=== PATIENT | female | born 1990 | race African-American/Black ===

== ENCOUNTER 2019-07-18 03:52 | Inpatient (IN) | payer OTHER ==
[~2019-07-18] VITALS: Ht 162.6 cm; Wt 95.3 kg
--- NOTE | 2019-07-18 04:19 | PHYS DOC ---
General Adult EDM: Chief Complaint: VAGINAL BLEEDING HPI: HPI: Patient is a 28 year old female who presents via EMS with report of vaginal bleeding and . Patient estimates her self to be somewhat in the neighborhood of 6 months . Patient has not had any care. EMS reports that patient had lost approximately 400-500 mL of blood. Patient states that she has not had any abdominal cramping to alert her to any trouble. She states that she is A1.[] Review of Systems: Review of Systems: Constitutional: Denies fever or chills. [] Respiratory: Denies cough or shortness of breath. [] Cardiovascular: Denies chest pain or edema. [] GI: Denies abdominal pain, nausea, vomiting, bloody stools or diarrhea. [] : Complains of vaginal bleeding. [] Musculoskeletal: Denies back pain or joint pain. [] Neurologic: Denies headache, focal weakness or sensory changes. [] A full 10 point review of systems has been reviewed and is otherwise negative. Heart Score: Risk Factors: Risk Factors: DM, Current or recent (<one month) smoker, HTN, HLP, family history of CAD, obesity. Risk Scores: Score 0 - 3: 2.5% MACE over next 6 weeks - Discharge Home Score 4 - 6: 20.3% MACE over next 6 weeks - Admit for Clinical Observation Score 7 - 10: 72.7% MACE over next 6 weeks - Early Invasive Strategies Physical Exam: PE: Constitutional: Well developed, well nourished, no acute distress, non-toxic appearance. [] HENT: Normocephalic, atraumatic, bilateral external ears normal, oropharynx moist, no oral exudates, nose normal. [] Eyes: PERRLA, EOMI, conjunctiva normal, no discharge. [] Neck: Normal range of motion, no tenderness, supple, no stridor. [] Cardiovascular: Mildly tachycardic rate with regular rhythm[] Lungs & Thorax: Bilateral breath sounds clear to auscultation [] Abdomen: Bowel sounds normal, with gravid uterus well above the umbilicus. [] Skin: Warm, dry, no erythema, no rash. [] Extremities: No tenderness, no cyanosis, no clubbing, ROM intact. [] Neurologic: Alert and oriented X 3, no focal deficits noted. [] EKG: EKG: [] Radiology/Procedures: Radiology/Procedures: [] Course & Med Decision Making: Course & Med Decision Making Pertinent Labs and Imaging studies reviewed. (See chart for details) Patient moved to room upon arrival was evaluated by your medical staff and OB nursing came to emergency room upon patient arrival. Ultrasound was immediately contacted and presented to room within a few minutes and ultrasound completed demonstrating estimated age of 31 weeks 3 days. Good heart tones were noted on exam. At this point, Dr. Posada, on-call for OB, was contacted and will come in immediately. Patient at this time transported up to labor and delivery. Dragon Disclaimer: [employer] Disclaimer: This electronic medical record was generated, in whole or in part, using a voice recognition dictation system. Departure Departure Impression: Primary Impression: Vaginal bleeding in patient after first trimester Disposition: 09 ADMITTED INPATIENT Condition: EDGARDO ROSAS Jr. DO Jul 18, 2019 04:19
[2019-07-18] MEDS ORDERED: IBUPROFEN 400 MG TABLET. PO PRN (04:30)
[2019-07-18] MEDS ORDERED: ACETAMINOPHEN 500 MG TABLET PO PRN (04:30)
[2019-07-18] MEDS ORDERED: OXYTOCIN 30 UNIT/500 ML PREMIX 500 ML IV PRN ×3 (04:30→06:15)
[2019-07-18] MEDS ORDERED: BUTORPHANOL 2 MG/ML VIAL. IVP PRN (04:30)
[2019-07-18] MEDS ORDERED: LIDOCAINE 1% PF 30 ML VIAL. INJ PRN (04:30)
[2019-07-18] MEDS ORDERED: TERBUTALINE 1 MG/ML VIAL. SQ PRN (04:30)
[2019-07-18] MEDS ORDERED: fentaNYL PF VIAL 100 MCG/2 ML VIAL IVP PRN (04:30)
[2019-07-18] MEDS ORDERED: 0.9 % SODIUM CHLORIDE 10 ML DISP.SYRIN. IV PRN ×2 (04:30→06:15)
[2019-07-18] MEDS ORDERED: CITRIC ACID/SODIUM CITRATE 30 ML SOLUTION. PO PRN (04:30)
[2019-07-18] MEDS ORDERED: ONDANSETRON PF 4 MG/2 ML VIAL. IVP PRN (04:30)
--- NOTE | 2019-07-18 04:36 | RAD ---
Study: US OB LIMITED Indication: Heavy vaginal bleeding. Known third trimester . Comparison: None. Technique: Limited obstetrical sonogram to include heart rate measurement, biometric data and assessment of the placenta for abruption. Findings: Biparietal diameter: 8.02 cm. 32 weeks 1 day Head circumference: 28.45 cm. 31 weeks 2 days Abdominal circumference: 27.03 cm. 31 weeks 1 day Femur length: 5.9 cm. 31 weeks 0 days heart rate measured at 169 bpm. Estimated gestational age by ultrasound of 31 weeks 3 days. Estimated weight of 1713 g +/- 254 g. Amniotic fluid index was not measured. A thin area of hypoechogenicity interposed between the placenta and uterus such as on image 9. This is not fully characterize. Impression: 1. Limited obstetrical sonogram in the setting of a third trimester . The study was not completed as the patient was in distress and transferred emergently to the obstetrical unit. 2. Single live intrauterine with an estimated gestational age by ultrasound of 31 weeks 3 days. A thin region of hypoechogenicity was seen interposed between the placenta and uterus on a few images but was not fully interrogated to exclude partial placental abruption. Electronically signed by: EKTA ORELLANA MD (07/18/2019 4:33 AM) [id number]
[2019-07-18 04:44] LABS: BILIRUBIN,URINE NEGATIVE (NEG); CLARITY,URINE CLEAR; COLOR,URINE YELLOW; NITRITE,URINE NEGATIVE (NEG); PH,URINE 6.5 (<5.0-8.0); PROTEIN,URINE 100 mg/dL (NEG-TRACE)
[2019-07-18] MEDS ORDERED: fentaNYL PF VIAL 100 MCG/2 ML VIAL ONE (04:48)
[2019-07-18] MEDS ORDERED: PROPOFOL 20 ML IV ONE (04:48)
[2019-07-18] MEDS ORDERED: SUCCINYLCHOLINE 200 MG/10 ML VIAL. ONE (04:48)
[2019-07-18 04:51] LABS: AMPHETAMINE/METHAMPHETAMINE POS (NEG); BARBITURATES NEG (NEG); BENZODIAZEPINES NEG (NEG); CANNABINOIDS NEG (NEG); COCAINE NEG (NEG); METHADONE NEG (NEG); OPIATES NEG (NEG); PHENCYCLIDINE NEG (NEG)
[2019-07-18 04:52] LABS: BASO % 1 % (0-3); EOS # 0.2 x10^3/uL (0.0-0.7); EOS % 2 % (0-3); HEMATOCRIT 28.6 % (36.0-47.0); HEMOGLOBIN 9.4 g/dL (12.0-15.5); LYMPH # 1.7 x10^3/uL (1.0-4.8); LYMPH % 18 % (24-48); MEAN CORPUSCULAR HEMOGLOBIN 27 pg (25-35); MEAN CORPUSCULAR HGB CONC 33 g/dL (31-37); MEAN CORPUSCULAR VOLUME 81 fL (79-100); MONO # 0.6 x10^3/uL (0.0-1.1); MONO % 7 % (0-9); NEUT # 6.5 x10^3/uL (1.8-7.7); NEUT % 72 % (31-73); PLATELET COUNT 267 x10^3/uL (140-400); RED BLOOD COUNT 3.54 x10^6/uL (3.50-5.40); RED CELL DISTRIBUTION WIDTH 16.5 % (11.5-14.5)
[2019-07-18 04:55] LABS: AMORPHOUS SEDIMENT,UR PRESENT /HPF; BACTERIA,URINE FEW /HPF (0-FEW); SQUAMOUS EPITHELIAL CELL,UR FEW /LPF; TRICHOMONAS,URINE PRESENT
--- NOTE | 2019-07-18 04:55 | PDOC1 ---
OB - History Hx of Present Care: None Ultrasounds: No ultrasounds Obstetrical Complications: None Medical Complications: None Past Family/Social History * Past Medical, Surgical, Family and Obstetric Histories reviewed from chart. Blood Type: Unknown Rubella: Unknown RPR/VDRL: Unknown GBS Status: Unknown HBsAG: Unknown OB - Chief Complaint & HPI Date of Admission: Date of Admission: Jul 18, 2019 at 04:19 Chief Complaint/History : 6 Para: 5 EGA: 31 Reason for admission: vaginal bleeding, other (placental abruption) Admission Nurse Assessment Rev: Yes OB - Admission Exam Physical Exam Vitals: VS - Last 72 Hours, by Label Date Time Temp Pulse Resp B/P (MAP) Pulse Ox O2 Delivery O2 Flow Rate FiO2 07/18/19 03:52 108 24 118/63 (81) 98 Room Air HEENT: Normal Heart: Other (tachycardia) Abdomen: Gravid, Tender (firm; tenderness lower abdomen; Pelvic: active bleeding with 50 ml blood clot seen with speculum exam. Digital exam deferred.) Extremities: No tenderness or swelling Membranes: Intact Heart Rate: Normal Accelerations: Accelerations Present Decelerations: No decelerations Contractions on Admission: < 5 Minutes Apart Intensity: Firm Text A: 31 wks IUP Previous c/s x 1 Placental abruption P: Admit for repeat c/s. Give magnesium sulfate bolus and celestone for corticosteroids. [facility]ICU Transport from [facility] notified. BRAULIO JONES Jr, MD Jul 18, 2019 04:55
[2019-07-18] MEDS ORDERED: MAGNESIUM SULFATE 4GM 100 ML IV ONE (05:00)
[2019-07-18] MEDS ORDERED: MAGNESIUM SULFATE 4 GM/100 ML IV ONE (05:00)
[2019-07-18] MEDS ORDERED: BETAMET ACET&NA PHOS 30 MG/5 ML VIAL. IM SCH (05:00)
[2019-07-18 05:03] LABS: PROTHROMBIN TIME PATIENT 12.8 SEC (11.7-14.0)
[2019-07-18 05:04] LABS: CALCIUM 7.8 mg/dL (8.5-10.1); CREATININE 0.6 mg/dL (0.6-1.0); POTASSIUM 3.5 mmol/L (3.5-5.1)
[2019-07-18 05:10] LABS: ALBUMIN/GLOBULIN RATIO 0.5 (1.0-1.7); MAGNESIUM 1.7 mg/dL (1.8-2.4); TOTAL BILIRUBIN 0.3 mg/dL (0.2-1.0); TOTAL PROTEIN 6.2 g/dL (6.4-8.2)
[2019-07-18] MEDS ORDERED: SEVOFLURANE 61 TO 120 MINUTES. IH ONE (05:15)
[2019-07-18] MEDS ORDERED: OXYTOCIN 10 UNIT/ML VIAL. ONE (05:15)
[2019-07-18] MEDS ORDERED: ONDANSETRON PF 4 MG/2 ML VIAL. ONE (05:23)
[2019-07-18] MEDS ORDERED: ceFAZolin 2GM PREMIX 2 GM/50 ML BAG IV ONE (06:00)
[2019-07-18] MEDS ORDERED: MAGNESIUM SULFATE 20GM 500 ML IV SCH (06:00)
--- NOTE | 2019-07-18 06:03 | PDOC4 ---
OB Operative Note Date: Jul 18, 2019 PRE OP DIAGNOSIS: Previoujs C- section (Placental abruption with active bleeding) POST OP DIAGNOSIS: Other (Same) OPERATION PERFORMED: R [facility] Surgeon Dr. Posada Anesthesia: Gen Blood Loss 500 ml Specimen placenta and infant OB Findings: Position (Vertex), Sex (Male), (28), Weight (1500 Gram), Other (placental abruption 50%) Complications placental abruption Additional Remarks Pt. BRAULIO Juan Jr, MD Jul 18, 2019 06:03
[2019-07-18] MEDS ORDERED: SIMETHICONE 80 MG TAB.CHEW PO PRN (06:15)
[2019-07-18] MEDS ORDERED: KETOROLAC 30 MG/ML VIAL. IV PRN (06:15)
[2019-07-18] MEDS ORDERED: diphenhydrAMINE ORAL ELIXIR 12.5 MG/5 ML ML PO PRN (06:15)
[2019-07-18] MEDS ORDERED: MAG HYDROX/ALUMINUM HYD/SIMETH 30 ML ORAL.SUSP PO PRN (06:15)
[2019-07-18] MEDS ORDERED: ONDANSETRON PF 4 MG/2 ML VIAL. IV PRN ×2 (06:15→07:30)
[2019-07-18] MEDS ORDERED: oxyCODONE/APAP 5/325 1 TAB TABLET PO PRN (06:15)
[2019-07-18] MEDS ORDERED: ZOLPIDEM 5 MG TABLET. PO PRN (06:15)
[2019-07-18] MEDS ORDERED: IV NORMAL SALINE 1000ML BAG 1,000 ML IV SCH (07:23)
[2019-07-18] MEDS ORDERED: IV RINGERS,LACTATED 1000ML 1,000 ML IV SCH (07:28)
[2019-07-18] MEDS ORDERED: PROCHLORPERAZINE 10 MG/2 ML VIAL. IV PRN (07:30)
[2019-07-18] MEDS ORDERED: HYDROmorphone 2 MG/ML VIAL IV PRN (07:30)
[2019-07-18] MEDS ORDERED: MORPHINE SULFATE 2 MG/ML VIAL. IV PRN (07:30)
[2019-07-18] MEDS ORDERED: NALOXONE 0.4 MG/ML VIAL. IV PRN (07:30)
[2019-07-18] MEDS ORDERED: fentaNYL PF VIAL 100 MCG/2 ML VIAL IV PRN ×2 (07:30)
[2019-07-18] MEDS ORDERED: LIDOCAINE 1% PF 2 ML VIAL. ID PRN (07:30)
[2019-07-18] MEDS ORDERED: fentaNYL STANDARD PCA 600 MCG/30 ML PCA.SYRING IV ONE (07:50)
[2019-07-18 08:14] LABS: HEMATOCRIT 27.6 % (36.0-47.0); RED BLOOD COUNT 3.39 x10^6/uL (3.50-5.40); RED CELL DISTRIBUTION WIDTH 16.6 % (11.5-14.5); WHITE BLOOD COUNT 10.3 x10^3/uL (4.0-11.0)
--- NOTE | 2019-07-18 09:05 | OP ---
DATE OF SURGERY: 07/18/2019 PREOPERATIVE DIAGNOSES: 1. A 31 weeks' intrauterine . 2. No care. 3. Placental abruption. 4. Previous section. POSTOPERATIVE DIAGNOSES: 1. A 31 weeks' intrauterine . 2. No care. 3. Placental abruption. 4. Previous section. PROCEDURE: Repeat low transverse section. SURGEON: Braulio Posada MD ANESTHESIA: GETA. ESTIMATED BLOOD LOSS: 500 mL. To note, there was about 500 mL of blood clot in the ambulance upon arrival per creative specialist. There was also an additional 50 mL of blood clot upon sterile speculum exam. FINDINGS: Viable male infant; Apgars 2, 5, 9; weight 1500 g. Three-vessel cord placenta delivered manually. SUMMARY: A 28-year-old 6, para 5 at about 31 weeks, presented via ambulance to the Emergency Room with vaginal bleeding of about 500 mL per creative specialist. The patient also reports having large blood loss at home in the bed as well as in the toilet. She denies any care up to this point. Ultrasound indicated a 31-week gestation. The patient clinically presented as placental abruption with firm, tender abdomen. Upon further evaluation with speculum exam, there was about another 50 mL of blood clot that was seen. She was counseled on risks, benefits and expectations of emergent section due to placental abruption. The patient was positive for methamphetamines and denied any other illicit drug use. DESCRIPTION OF PROCEDURE: The patient was taken to surgery suite and placed in dorsal supine position. She was prepped with ChloraPrep and draped in sterile fashion. After adequate anesthesia, Pfannenstiel skin incision was made with a scalpel down to and through the fascia. Fascia was extended laterally using curved Lal scissors. The superior edge of fascia was grasped with 2 Zen clamps, dissected free of the abdominal rectus muscles using blunt dissection along with Bovie cautery. The same process took place inferiorly. The peritoneum and abdominal rectus muscles were dissected using curved Lal scissors. The Jeancarlos ring retractor was placed. Low transverse hysterotomy incision was made with a scalpel down to the amniotic sac. Hysterotomy incision was extended laterally and superiorly digitally. Amniotomy was performed with Allis clamp, which elicited clear fluid. With fundal pressure, the infant's head was delivered in a smooth atraumatic manner. With additional fundal pressure, the rest of the male infant was delivered. The was suctioned with bulb syringe orally and nasally, umbilical cord was clamped twice and cut. Viable male was handed to waiting nursing staff. Umbilical cord blood was then obtained as well as arterial pH. Three-vessel cord placenta was delivered manually. The uterus was exteriorized, cleared of clot and debris with a moist lap. Hysterotomy incision was reapproximated using #1 Vicryl suture in running locked fashion and imbricated layer of #1 Vicryl suture was utilized for better hemostasis. Uterus palpated firm. Fallopian tubes and ovaries appeared normal bilaterally. Posterior cul-de-sac was cleared of clot and debris with moist lap. The uterus was then returned to the abdomen. Pericolic gutters were cleared of clot and debris with moist lap. Hysterotomy incision was reviewed and was hemostatic. The Jeancarlos ring retractor was removed. Peritoneum was reapproximated using #1 Vicryl suture in running fashion. Fascia was reapproximated using Stratafix in running fashion. Skin was reapproximated using 4-0 Vicryl suture in subcuticular manner. The patient tolerated the procedure well and was taken to recovery room in stable condition. Sponge and needle count correct x 3. BRAULIO POSADA MD DR: CRISSY/ambar JOB#: [id number] / [id number]
[2019-07-18 10:00] VITALS: BP 103/70
[2019-07-18 10:30] VITALS: BP 111/74
[2019-07-18 11:00] VITALS: BP 112/69
[2019-07-18] MEDS: IV RINGERS,LACTATED 1000ML 1,000 ML IV SCH ×2 (11:00→18:08)
[2019-07-18 12:30] VITALS: BP 113/69
[2019-07-18 12:41] LABS: HEMATOCRIT 25.8 % (36.0-47.0); HEMOGLOBIN 8.4 g/dL (12.0-15.5); RED BLOOD COUNT 3.22 x10^6/uL (3.50-5.40); RED CELL DISTRIBUTION WIDTH 16.8 % (11.5-14.5); WHITE BLOOD COUNT 11.6 x10^3/uL (4.0-11.0)
--- NOTE | 2019-07-18 12:45 | NUR ---
SS following up with referral regarding no care, maternal methamphetamine use, and other children. SS reviewed pt chart and discussed with infant and mother RN. transferred to [facility] due to medical concerns. Mother positive for methamphetamines. SS met with mother and maternal grandmother in room to discuss circumstances surrounding the referral. Mother somewhat confused but understanding that SS needed to complete hotline for Methamphetamine use. Mother denied substance use and reported that she took some medications and her sons inhaler. Mother reported she has five other children in the home. DCF hotline report completed for Methamphetamine use, no care, and concern for infant and other children in the home. Intake#[id number].
[2019-07-18 15:46] VITALS: BP 94/62
[2019-07-18] MEDS: FERROUS SULFATE 325 MG TABLET. PO SCH ×2 (17:00→18:08)
[2019-07-18] MEDS: DOCUSATE SODIUM 100 MG CAPSULE. PO PRN (18:08)
[2019-07-18 21:02] VITALS: BP 99/61
[2019-07-19] MEDS: IV RINGERS,LACTATED 1000ML 1,000 ML IV SCH (01:30)
[2019-07-19 01:45] VITALS: BP 93/52
[2019-07-19 03:53] LABS: BASO % 0 % (0-3); EOS % 0 % (0-3); HEMATOCRIT 24.2 % (36.0-47.0); HEMOGLOBIN 7.9 g/dL (12.0-15.5); LYMPH # 1.2 x10^3/uL (1.0-4.8); LYMPH % 9 % (24-48); MEAN CORPUSCULAR HEMOGLOBIN 26 pg (25-35); MEAN CORPUSCULAR HGB CONC 33 g/dL (31-37); MEAN CORPUSCULAR VOLUME 80 fL (79-100); MONO # 0.8 x10^3/uL (0.0-1.1); MONO % 6 % (0-9); NEUT # 10.7 x10^3/uL (1.8-7.7); NEUT % 84 % (31-73); PLATELET COUNT 248 x10^3/uL (140-400); RED BLOOD COUNT 3.02 x10^6/uL (3.50-5.40); RED CELL DISTRIBUTION WIDTH 17.2 % (11.5-14.5); WHITE BLOOD COUNT 12.8 x10^3/uL (4.0-11.0)
[2019-07-19] MEDS: IBUPROFEN 400 MG TABLET. PO PRN ×2 (06:14→16:34)
[2019-07-19 06:45] VITALS: BP 108/67
--- NOTE | 2019-07-19 07:13 | PDOC ---
OB Progress Note Date of Service 07/19/19 Time of Evaluation 0710 Problem List Problems Medical Problems: (1) Vaginal bleeding in patient after first trimester Status: Acute Notes PT. feeling well. Pain controlled. No complaints. Lab Laboratory Tests Test 07/18/19 04:37 07/18/19 04:39 07/18/19 08:00 07/18/19 11:45 Urine Collection Type Unknown Urine Color Yellow Urine Clarity Clear Urine pH 6.5 (<5.0-8.0) Urine Specific [place] 1.020 (1.000-1.030) Urine Protein 100 mg/dL (NEG-TRACE) Urine Glucose (UA) Negative mg/dL (NEG) Urine Ketones (Stick) Negative mg/dL (NEG) Urine Blood Moderate (NEG) Urine Nitrite Negative (NEG) Urine Bilirubin Negative (NEG) Urine Urobilinogen Dipstick 1.0 mg/dL (0.2 mg/dL) Urine Leukocyte Esterase Moderate (NEG) Urine RBC 11-20 /HPF (0-2) Urine WBC 11-20 /HPF (0-4) Urine Squamous Epithelial Cells Few /LPF Urine Amorphous Sediment Present /HPF Urine Bacteria Few /HPF (0-FEW) Urine Mucus Marked /LPF Urine Trichomonas Present Urine Opiates Screen Neg (NEG) Urine Methadone Screen Neg (NEG) Urine Barbiturates Neg (NEG) Urine Phencyclidine Screen Neg (NEG) Urine Amphetamine/Methamphetamine Pos (NEG) Urine Benzodiazepines Screen Neg (NEG) Urine Cocaine Screen Neg (NEG) Urine Cannabinoids Screen Neg (NEG) Urine Ethyl Alcohol Neg (NEG) White Blood Count 9.0 x10^3/uL (4.0-11.0) 10.3 x10^3/uL (4.0-11.0) 11.6 x10^3/uL (4.0-11.0) Red Blood Count 3.54 x10^6/uL (3.50-5.40) 3.39 x10^6/uL (3.50-5.40) 3.22 x10^6/uL (3.50-5.40) Hemoglobin 9.4 g/dL (12.0-15.5) 9.0 g/dL (12.0-15.5) 8.4 g/dL (12.0-15.5) Hematocrit 28.6 % (36.0-47.0) 27.6 % (36.0-47.0) 25.8 % (36.0-47.0) Mean Corpuscular Volume 81 fL (79-100) 81 fL (79-100) 80 fL (79-100) Mean Corpuscular Hemoglobin 27 pg (25-35) 27 pg (25-35) 26 pg (25-35) Mean Corpuscular Hemoglobin Concent 33 g/dL (31-37) 33 g/dL (31-37) 33 g/dL (31-37) Red Cell Distribution Width 16.5 % (11.5-14.5) 16.6 % (11.5-14.5) 16.8 % (11.5-14.5) Platelet Count 267 x10^3/uL (140-400) 220 x10^3/uL (140-400) 230 x10^3/uL (140-400) Neutrophils (%) (Auto) 72 % (31-73) Lymphocytes (%) (Auto) 18 % (24-48) Monocytes (%) (Auto) 7 % (0-9) Eosinophils (%) (Auto) 2 % (0-3) Basophils (%) (Auto) 1 % (0-3) Neutrophils # (Auto) 6.5 x10^3/uL (1.8-7.7) Lymphocytes # (Auto) 1.7 x10^3/uL (1.0-4.8) Monocytes # (Auto) 0.6 x10^3/uL (0.0-1.1) Eosinophils # (Auto) 0.2 x10^3/uL (0.0-0.7) Basophils # (Auto) 0.0 x10^3/uL (0.0-0.2) Prothrombin Time 12.8 SEC (11.7-14.0) Prothromb Time International Ratio 1.0 (0.8-1.1) Activated Partial Thromboplast Time 28 SEC (24-38) Sodium Level 140 mmol/L (136-145) Potassium Level 3.5 mmol/L (3.5-5.1) Chloride Level 108 mmol/L (98-107) Carbon Dioxide Level 20 mmol/L (21-32) Anion Gap 12 (6-14) Blood Urea Nitrogen 10 mg/dL (7-20) Creatinine 0.6 mg/dL (0.6-1.0) Estimated GFR (Cockcroft-Gault) 143.0 BUN/Creatinine Ratio 17 (6-20) Glucose Level 113 mg/dL (70-99) Calcium Level 7.8 mg/dL (8.5-10.1) Magnesium Level 1.7 mg/dL (1.8-2.4) Total Bilirubin 0.3 mg/dL (0.2-1.0) Aspartate Amino Transf (AST/SGOT) 15 U/L (15-37) Alanine Aminotransferase (ALT/SGPT) 19 U/L (14-59) Alkaline Phosphatase 74 U/L (46-116) Total Protein 6.2 g/dL (6.4-8.2) Albumin 2.0 g/dL (3.4-5.0) Albumin/Globulin Ratio 0.5 (1.0-1.7) Treponema pallidum Antibody Nonreactive (Nonreactive) HIV (1&2) Antibody Screen Nonreactive (Nonreactive) Rubella IgG Antibody 1.09 index (Immune >0.99) Hepatitis B Surface Antibody Reactive Test 07/19/19 03:40 White Blood Count 12.8 x10^3/uL (4.0-11.0) Red Blood Count 3.02 x10^6/uL (3.50-5.40) Hemoglobin 7.9 g/dL (12.0-15.5) Hematocrit 24.2 % (36.0-47.0) Mean Corpuscular Volume 80 fL (79-100) Mean Corpuscular Hemoglobin 26 pg (25-35) Mean Corpuscular Hemoglobin Concent 33 g/dL (31-37) Red Cell Distribution Width 17.2 % (11.5-14.5) Platelet Count 248 x10^3/uL (140-400) Neutrophils (%) (Auto) 84 % (31-73) Lymphocytes (%) (Auto) 9 % (24-48) Monocytes (%) (Auto) 6 % (0-9) Eosinophils (%) (Auto) 0 % (0-3) Basophils (%) (Auto) 0 % (0-3) Neutrophils # (Auto) 10.7 x10^3/uL (1.8-7.7) Lymphocytes # (Auto) 1.2 x10^3/uL (1.0-4.8) Monocytes # (Auto) 0.8 x10^3/uL (0.0-1.1) Eosinophils # (Auto) 0.0 x10^3/uL (0.0-0.7) Basophils # (Auto) 0.0 x10^3/uL (0.0-0.2) Laboratory Tests Test 07/18/19 08:00 07/18/19 11:45 07/19/19 03:40 White Blood Count 10.3 x10^3/uL (4.0-11.0) 11.6 x10^3/uL (4.0-11.0) 12.8 x10^3/uL (4.0-11.0) Red Blood Count 3.39 x10^6/uL (3.50-5.40) 3.22 x10^6/uL (3.50-5.40) 3.02 x10^6/uL (3.50-5.40) Hemoglobin 9.0 g/dL (12.0-15.5) 8.4 g/dL (12.0-15.5) 7.9 g/dL (12.0-15.5) Hematocrit 27.6 % (36.0-47.0) 25.8 % (36.0-47.0) 24.2 % (36.0-47.0) Mean Corpuscular Volume 81 fL (79-100) 80 fL (79-100) 80 fL (79-100) Mean Corpuscular Hemoglobin 27 pg (25-35) 26 pg (25-35) 26 pg (25-35) Mean Corpuscular Hemoglobin Concent 33 g/dL (31-37) 33 g/dL (31-37) 33 g/dL (31-37) Red Cell Distribution Width 16.6 % (11.5-14.5) 16.8 % (11.5-14.5) 17.2 % (11.5-14.5) Platelet Count 220 x10^3/uL (140-400) 230 x10^3/uL (140-400) 248 x10^3/uL (140-400) Hepatitis B Surface Antibody Reactive Neutrophils (%) (Auto) 84 % (31-73) Lymphocytes (%) (Auto) 9 % (24-48) Monocytes (%) (Auto) 6 % (0-9) Eosinophils (%) (Auto) 0 % (0-3) Basophils (%) (Auto) 0 % (0-3) Neutrophils # (Auto) 10.7 x10^3/uL (1.8-7.7) Lymphocytes # (Auto) 1.2 x10^3/uL (1.0-4.8) Monocytes # (Auto) 0.8 x10^3/uL (0.0-1.1) Eosinophils # (Auto) 0.0 x10^3/uL (0.0-0.7) Basophils # (Auto) 0.0 x10^3/uL (0.0-0.2) Medications Current Medications Sodium Chloride (Normal Saline Flush) 3 ml QSHIFT PRN IV AFTER MEDS AND BLOOD DRAWS; Start 07/18/19 at 04:30; Stop 07/18/19 at 06:20; Status DC Ringer's Solution 1,000 ml @ 125 mls/hr Q8H IV Last administered on 07/19/19at 01:30; Start 07/18/19 at 04:24 Butorphanol Tartrate (Stadol) 2 mg PRN Q1HR PRN IVP Severe labor pain; Start 07/18/19 at 04:30 Fentanyl Citrate (Fentanyl 2ml Vial) 100 mcg PRN Q30MIN PRN IVP Severe pain; Start 07/18/19 at 04:30 Acetaminophen (Tylenol) 1,000 mg PRN Q6HRS PRN PO MILD PAIN / TEMP > 100.3'F; Start 07/18/19 at 04:30 Ondansetron HCl (Zofran) 4 mg PRN Q4HRS PRN IVP NAUSEA/VOMITING 1ST CHOICE; Start 07/18/19 at 04:30 Citric Acid/ Sodium Citrate (Bicitra) 30 ml 1X PRN PRN PO DYSPEPSIA; Start 07/18/19 at 04:30; Stop 07/19/19 at 04:29; Status DC Terbutaline Sulfate (Brethine) 0.25 mg 1X PRN PRN SQ SEE COMMENTS; Start 07/18/19 at 04:30; Stop 07/19/19 at 04:29; Status DC Lidocaine HCl (Xylocaine 1% Pf 30ml Vial) 30 ml 1X PRN PRN INJ SEE COMMENTS; Start 07/18/19 at 04:30; Stop 07/20/19 at 04:29 Oxytocin/Sodium Chloride 500 ml @ 0 mls/hr CONT PRN IV SEE I/O RECORD; Start 07/18/19 at 04:30 Oxytocin/Sodium Chloride 500 ml @ 0 mls/hr CONT PRN PRN IV Post delivery bleeding; Start 07/18/19 at 04:30 Ibuprofen (Motrin) 800 mg PRN Q6HRS PRN PO MODERATE PAIN 4-6; Start 07/18/19 at 04:30; Stop 07/18/19 at 06:20; Status DC Betamethasone Sodium Phosphate (Celestone Soluspan) 12 mg Q24H IM ; Start 07/18/19 at 05:00; Stop 07/20/19 at 04:59 Magnesium Sulfate 100 ml @ 25 mls/hr 1X ONCE IV ; Start 07/18/19 at 05:00; Stop 07/18/19 at 13:29; Status DC Magnesium Sulfate 500 ml @ 50 mls/hr Q10H IV ; Start 07/18/19 at 06:00; Stop 07/18/19 at 13:29; Status DC Succinylcholine Chloride (Anectine) 200 mg STK-MED ONCE .ROUTE ; Start 07/18/19 at 04:48; Stop 07/18/19 at 04:48; Status DC Propofol 20 ml @ As Directed STK-MED ONCE IV ; Start 07/18/19 at 04:48; Stop 07/18/19 at 04:48; Status DC Fentanyl Citrate (Fentanyl 2ml Vial) 100 mcg STK-MED ONCE .ROUTE ; Start 07/18/19 at 04:48; Stop 07/18/19 at 04:49; Status DC Cefazolin Sodium/ Dextrose 50 ml @ 100 mls/hr 1X ONCE IV ; Start 07/18/19 at 05:00; Stop 07/18/19 at 05:29; Status DC Oxytocin (Pitocin) 10 unit STK-MED ONCE .ROUTE ; Start 07/18/19 at 05:15; Stop 07/18/19 at 05:16; Status DC Sevoflurane (Ultane) 60 ml STK-MED ONCE IH ; Start 07/18/19 at 05:15; Stop 07/18/19 at 05:16; Status DC Ondansetron HCl (Zofran) 4 mg STK-MED ONCE .ROUTE ; Start 07/18/19 at 05:23; Stop 07/18/19 at 05:23; Status DC Sodium Chloride (Normal Saline Flush) 3 ml QSHIFT PRN IV AFTER MEDS AND BLOOD DRAWS; Start 07/18/19 at 06:15 Oxytocin/Sodium Chloride 500 ml @ 125 mls/hr CONT PRN IV EXCESSIVE POST- BLEEDING; Start 07/18/19 at 06:15; Stop 07/18/19 at 14:14; Status DC Ibuprofen (Motrin) 800 mg PRN Q8HRS PRN PO INFLAMMATION Last administered on 07/19/19at 06:14; Start 07/18/19 at 06:15 Ondansetron HCl (Zofran) 4 mg PRN Q6HRS PRN IV NAUSEA/VOMITING 1ST CHOICE; Start 07/18/19 at 06:15 Docusate Sodium (Colace) 100 mg PRN BID PRN PO CONSTIPATION 1ST CHOICE Last administered on 07/18/19at 18:08; Start 07/18/19 at 06:15 Al Hydroxide/Mg Hydroxide (Mylanta Plus Xs) 30 ml PRN Q4HRS PRN PO HEARTBURN / GAS; Start 07/18/19 at 06:15 Simethicone (Gas-X) 80 mg PRN AFTMEALHC PRN PO GAS / BLOATING Last administered on 07/18/19at 18:08; Start 07/18/19 at 06:15 Diphenhydramine HCl (Benadryl Oral Elixir) 12.5 mg PRN Q6HRS PRN PO ITCHING; Start 07/18/19 at 06:15 Ferrous Sulfate (Feosol) 325 mg BIDWMEALS PO Last administered on 07/18/19at 18:08; Start 07/18/19 at 08:00 Zolpidem Tartrate (Ambien) 5 mg PRN QHS PRN PO INSOMNIA, MAY REPEAT X1; Start 07/18/19 at 06:15 Oxycodone/ Acetaminophen (Percocet 5/325) 2 tab PRN Q4HRS PRN PO MODERATE PAIN, SEVERE PAIN; Start 07/18/19 at 06:15 Ketorolac Tromethamine (Toradol 30mg Vial) 30 mg PRN Q6HRS PRN IV MODERATE PAIN 4-6 Last administered on 07/18/19at 06:31; Start 07/18/19 at 06:15; Stop 07/23/19 at 06:14 Multivitamins (Thera M Plus) 1 tab DAILY PO ; Start 07/18/19 at 09:00 Ondansetron HCl (Zofran) 4 mg PRN Q6HRS PRN IV NAUSEA/VOMITING; Start 07/18/19 at 07:30; Stop 07/19/19 at 07:29 Fentanyl Citrate (Fentanyl 2ml Vial) 25 mcg PRN Q5MIN PRN IV MILD PAIN 1-3 Last administered on 07/18/19at 07:48; Start 07/18/19 at 07:30; Stop 07/19/19 at 07:29 Fentanyl Citrate (Fentanyl 2ml Vial) 50 mcg PRN Q5MIN PRN IV MODERATE TO SEVERE PAIN; Start 07/18/19 at 07:30; Stop 07/19/19 at 07:29 Morphine Sulfate (Morphine Sulfate) 1 mg PRN Q10MIN PRN IV SEVERE PAIN 7-10; Start 07/18/19 at 07:30; Stop 07/19/19 at 07:29 Ringer's Solution 1,000 ml @ 30 mls/hr Q24H IV ; Start 07/18/19 at 07:28; Stop 07/18/19 at 19:27; Status DC Lidocaine HCl (Xylocaine-Mpf 1% 2ml Vial) 2 ml PRN 1X PRN ID PRIOR TO IV START; Start 07/18/19 at 07:30; Stop 07/19/19 at 07:29 Hydromorphone HCl (Dilaudid) 0.5 mg PRN Q10MIN PRN IV SEV PAIN, Second choice; Start 07/18/19 at 07:30; Stop 07/19/19 at 07:29 Prochlorperazine Edisylate (Compazine) 5 mg PACU PRN PRN IV NAUSEA, MRX1; Start 07/18/19 at 07:30; Stop 07/19/19 at 07:29 Fentanyl Citrate 30 ml @ 0 mls/hr CONT PRN PRN IV PER PROTOCOL Last administered on 07/18/19at 08:18; Start 07/18/19 at 07:30 Naloxone HCl (Narcan) 0.4 mg PRN Q2MIN PRN IV SEE INSTRUCTIONS; Start 07/18/19 at 07:30 Sodium Chloride 1,000 ml @ 25 mls/hr Q24H IV ; Start 07/18/19 at 07:23 Metronidazole (Flagyl) 2,000 mg 1X ONCE PO ; Start 07/19/19 at 07:30; Stop 07/19/19 at 07:31 Magnesium Sulfate (Magnesium Sulfate PREMIX 4GM) 4 gm STK-MED ONCE IV ; Start 07/18/19 at 05:00; Stop 07/18/19 at 08:33; Status DC Exam Abd: soft, mild tenderness, fundus firm Bandage removed. Incision site: clean, dry and intact Assessment POD#1 s/p repeat c/s Plan of Care: Continue current Tx, Mgmt BRAULIO JONES Jr, MD Jul 19, 2019 07:13
[2019-07-19] MEDS ORDERED: metroNIDAZOLE 500 MG TABLET PO ONE (07:30)
[2019-07-19] MEDS: MULTIVITAMIN with MINERAL TABLET. PO SCH (10:00)
[2019-07-19] MEDS: FERROUS SULFATE 325 MG TABLET. PO SCH ×2 (10:01→16:35)
[2019-07-19] MEDS: DOCUSATE SODIUM 100 MG CAPSULE. PO PRN (10:01)
[2019-07-19 20:00] VITALS: BP 91/53
[2019-07-20 01:27] VITALS: BP 106/61
[2019-07-20 06:31] VITALS: BP 109/63
--- NOTE | 2019-07-20 07:51 | PDOC3 ---
OB DISCHARGE SUMMARY DATE OF ADMISSION: 07/18/19 DATE OF DISCHARGE: 07/20/19 REASON FOR ADMISSION: section (placental abruption) INTRAPARTUM PROCEDURES: : Low Cerv Trans PROBLEM LIST AT DISCHARGE Problems Medical Problems: (1) Vaginal bleeding in patient after first trimester Status: Acute DISCHARGE DIAGNOSIS: Others ( delivery, Placental abruption, drug use during ) DISCHARGE INFORMATION: Activity (ad antony), Diet (regular), Instructions (pelvic rest x 6 wks, no driving x 2 wks, no lifting > 20lbs. x 6 wks) HOSPITAL COURSE gestation delivered via emergency section due to placental abruption. BRAULIO JONES Jr, MD Jul 20, 2019 07:51
[2019-07-20] MEDS ORDERED: OXYC1TAB15 PO (07:54)
[2019-07-20] MEDS ORDERED: FERR325T72 PO (07:54)
[2019-07-20] MEDS ORDERED: DOCU-153 PO (07:54)
[2019-07-20] MEDS ORDERED: IBUP-1027 PO (07:54)
--- NOTE | 2019-07-20 07:54 | DISCH ---
DISCHARGE INSTRUCTIONS Condition on Discharge Condition on Discharge: Stable Activity After Discharge Activity Instructions for Disc: Activity as tolerated Lifting Instructions after Dis: No heavy lifting Driving Instructions after Dis: No driving for 2 weeks Diet after Discharge Diet after Discharge: Regular Contacting the [facility] after DC Call your doctor for: Concerns you may have Follow-Up Follow up with: Dr. Posada in 2 wks BRAULIO POSADA Jr, MD Jul 20, 2019 07:54
[2019-07-20] MEDS: DOCUSATE SODIUM 100 MG CAPSULE. PO PRN (10:05)
[2019-07-20] MEDS: FERROUS SULFATE 325 MG TABLET. PO SCH (10:05)
[2019-07-20] MEDS: MULTIVITAMIN with MINERAL TABLET. PO SCH (10:06)
[2019-07-20] MEDS: IBUPROFEN 400 MG TABLET. PO PRN (10:06)
[2019-07-20 11:30] VITALS: BP 115/75
--- NOTE | 2019-07-20 11:40 | NUR ---
Pt discharged to home with mother after emergent C/S 07/17 after abruption at home pt was + for drug use. [facility] worker called to talk with pt yesterday and will f/u with her at [facility] where 30week is in NICU
--- NOTE | 2019-07-21 14:06 | PATHOLOGY ---
[facility] Accession Number: [id number] . 01 Material submitted: . placenta - PLACENTA AND CORD . 01 Clinical history: . Abruptio placenta; gestational age 30.3 weeks; [id number]; Apgars 1, 5, 9 . 02 Diagnosis: Placenta, section: - Immature, christiansen placenta. - Three vessel umbilical cord with central insertion into the chorionic plate. - Recent and remote retromembranous hematoma. - Recent retroplacental hematoma, with features of the underlying placental parenchyma consistent with abruptio placenta. - Chronic lymphocytic deciduitis. - Meconium staining of membranes. (MLK:hood; 07/21/2019) S 07/21/2019 1334 Local . 02 Electronically signed: . Yoko Pena MD, Pathologist NPI- [id number] . 01 Gross description: . The specimen is received in formalin, labeled "Yuliya Perales, placenta". Received is a christiansen placenta with attached membranes and umbilical cord with a trimmed placental weight of 341 g and measuring 17.2 x 14.2 x 2.5 cm in greatest dimensions. The membranes are pale finley and translucent in appearance, and the site of membrane rupture is 5.1 cm from the placental margin. The surface is intact displaying a normal arborizing vasculature pattern, as well as diffuse focal fibrin deposition. The trivascular umbilical cord measures 25.2 cm in length by up to 1.5 cm in diameter and inserts centrally, 5.3 cm from the closest placental margin. The umbilical cord is pale finley to blue-iyer in appearance with minimal helical twisting. The maternal surface is disrupted over approximately 25% of the surface, however, displays a normal amount of cotyledons. A minimal amount of adherent blood coagulum is seen on the surface. Sectioning reveals red-brown cut surfaces with no grossly distinct nodules or lesions. The specimen is submitted representatively as follows: . A1 proximal umbilical cord and surface vessels A2 umbilical cord and membrane roll A3-A5 appliance service representative sections from disrupted areas of maternal surface A6 appliance service representative section of intact area of maternal surface. (CAA; 07/19/2019) QA/QA 07/19/2019 1058 Local . 02 Pathologist provided ICD-10: O43.893, O77.0, Z37.0, Z3A.30 . 02 CPT . 325354 Specimen Comment: A courtesy copy of this report has been sent to [phone] Specimen Comment: Report sent to Performed at: 01 [facility] [address] [id number] MD Arron Orona MD Phone: [phone] Performed at: 02 [facility] [address] [place] [id number] MD Tod Whitt MD Phone: [phone]
== END 2019-07-20 11:46 | disposition home or self-care (01) | DRG 786 ==
LOC: ER 03:52 → 3 SO LND 04:19 → 3 NORTH 10:00
PROVIDERS: ADMIT Obstetrics & Gynecology; ATTEND Obstetrics & Gynecology
PROC: 10D00Z1 Extraction of Products of Conception, Low, Open Approach (ICD-10-PCS; principal; 2019-07-18)
DX: O45.93 Premature separation of placenta, unspecified, third trimester (principal); O60.14X0 Preterm labor third trimester with preterm delivery third trimester, not applicable or unspecified; O99.324 Drug use complicating childbirth; O34.211 Maternal care for low transverse scar from previous cesarean delivery; F15.90 Other stimulant use, unspecified, uncomplicated; Z3A.31 31 weeks gestation of pregnancy; Z37.0 Single live birth; Z88.8 Allergy status to other drugs, medicaments and biological substances
CPT/HCPCS: 36415; 76815; 80053; 80307; 81001; 83735; 85025; 85027; 85610; 85730; 86592; 86703; 86706; 86762; 86850; 86900; 86901; 87086; 87340; 99285; J0330; J0696; J1885; J2405; J2590; J2704; J3010; J3475; J7120; G0378